=== PATIENT | female | born 1995 | race Caucasian/White ===

== ENCOUNTER 2017-04-18 21:59 | Emergency (ER) | END 2017-04-19 02:00 | disposition home or self-care (01) ==

== ENCOUNTER 2017-05-20 09:54 | Day surgery (SDC) | END 2017-05-20 12:57 | disposition home or self-care (01) ==

== ENCOUNTER 2018-02-18 18:27 | Emergency (ER) | END 2018-02-18 19:49 | disposition home or self-care (01) ==